=== PATIENT | female | born 1955 | race Caucasian/White ===

== ENCOUNTER 2017-07-06 20:28 | Emergency (ER) | payer OTHER ==
[~2017-07-06] VITALS: Ht 170.2 cm; Wt 81.0 kg
[~2017-07-06 20:28] MED LIST: HYDR-3498 PO; IBUP800T25; PRED20TA PO
[2017-07-06 20:31] VITALS: Ht 170.2 cm; Wt 81.0 kg
[2017-07-06] MEDS ORDERED: KETOROLAC 30 MG INJ IM STA (22:47)
--- NOTE | 2017-07-06 23:25 | RADRPT ---
PROCEDURE: XR Knee. CLINICAL INDICATION: 61 years of age, female. Right knee pain. TECHNIQUE: Three views of the right knee. COMPARISON: None available. FINDINGS: Negative for evidence of acute fracture. Normal alignment. There is advanced tricompartment osteoarthritis with joint space narrowing and osteophytes in all co mpartments greatest in the lateral and patellofemoral compartments. Negative for evidence of a joint effusion. Negative for significant soft tissue swelling. IMPRESSION: Advanced tricompartment osteoarthritis. Negative for evidence of acute fracture. RPTAT: HCTS Physician Elise Date Time Electronically viewed and signed by Physician Elise on 07/06/2017 23:25 CS/
--- NOTE | 2017-07-07 00:46 | RADRPT ---
PROCEDURE: US right lower extremity venous Doppler CLINICAL INDICATION: Right leg swelling TECHNIQUE: Multiple sonographic images of the right lower extremity deep venous system was obtaine d utilizing grayscale, color-flow, compressive sonography and Doppler imaging with augmentation. COMPARISON: No pertinent prior examinations were submitted for comparison. FINDINGS: There is normal compressibility and flow within the right common femoral, superficial femoral, popli teal, and peroneal veins. IMPRESSION: No sonographic evidence for deep venous thrombosis. RPTAT: HIKT .Dhaval Baker MD, MD Date Time Electronically viewed and signed by .Dhaval Baker MD, MD on 07/07/2017 00:46 .T/
[2017-07-07] MEDS ORDERED: IBUP-1542 PO (00:57)
--- NOTE | 2017-07-07 02:46 | ERD ---
ER Documentation Chief Complaint Date/Time DATE: 07/07/17 TIME: 02:43 Chief Complaint right knee pain x 1 week, denies injury HPI This patient is a 61-year-old female presenting to the emergency department with complaints of right knee pain as well as right lower extremity swelling for the past 2 weeks. She had no injury. She describes the symptoms as throbbing, 8 out of 10, and intermittent. She denies recent travel, being on blood thinners, or past history of blood clots. ROS All systems reviewed and are negative except as per history of present illness. Medications Home Meds Active Scripts Ibuprofen* (Motrin*) 600 Mg Tab, 600 MG PO Q6, #30 TAB Prov:YURY QUINTANILLA PA-C 07/07/17 Prednisone* (Prednisone*) 20 Mg Tab, 40 MG PO DAILY for 3 Days, TAB Prov:JOSE RUBIO MD 03/30/16 Hydrocodone Bit-Acetaminophen* ([place]*) 5-325 Mg Tab, 1 TAB PO Q6 Y for PAIN, # 10 TAB Prov:JOSE RUBIO MD 03/30/16 Ibuprofen* (Motrin*) 800 Mg Tab, 800 MG .ROUTE Q6, #30 TAB Prov:ANDIE GIBSON PA-C 06/19/15 Hydrocodone Bit-Acetaminophen* ([place]*) 5-325 Mg Tab, 1 TAB PO Q6 Y for PAIN, # 10 TAB Prov:ANDIE GIBSON PA-C 06/19/15 Allergies Allergies: Coded Allergies: No Known Allergy (Unverified , 03/30/16) PMhx/Soc History of Surgery: Yes (total hysterectomy 1999) Anesthesia Reaction: No Hx Neurological Disorder: No Hx Respiratory Disorders: No Hx Cardiac Disorders: Yes (HTN) Hx Psychiatric Problems: No Hx Miscellaneous Medical Probl: Yes (uterus ca, sx) Hx Alcohol Use: No Hx Substance Use: No Hx Tobacco Use: No Smoking Status: Never smoker Physical Exam Vitals Vital Signs Date Time Temp Pulse Resp B/P Pulse Ox O2 Delivery O2 Flow Rate FiO2 07/06/17 20:31 98.1 70 20 164/77 98 Physical Exam Const: Nontoxic, well-appearing female in no acute distress. Head: Atraumatic Eyes: Normal Conjunctiva ENT: Normal External Ears, Nose and Mouth. Neck: Full range of motion..~ No meningismus. Resp: Clear to auscultation bilaterally Cardio: Regular rate and rhythm, no murmurs Abd: Soft, non tender, non distended. Normal bowel sounds Skin: No petechiae or rashes Back: No midline or flank tenderness Ext: There is subjective tenderness over the medial, lateral, and anterior portion of the right knee. There is no obvious joint effusion. There is no warmth or erythema noted about the right knee. There are varicosities noted superior to the right knee. The patient has limited range of motion of the right knee secondary to pain. The left lower extremity is normal on exam. Neur: Awake and alert Psych: Normal Mood and Affect Results 24 hrs Current Medications Medications (Trade) Dose Ordered Sig/Yvonne Route PRN Reason Start Time Stop Time Status Last Admin Dose Admin Ketorolac Tromethamine (Toradol) 30 mg ONCE STAT IM 07/06/17 22:47 07/06/17 22:48 DC 07/06/17 23:33 Procedures/MDM 61-year-old female presents to the emergency department with complaints of right knee pain as well as right lower extremity swelling. Venous Doppler was negative for DVT and interpreted by the radiologist. X-ray of the right knee showed arthritis, but no acute fracture. The patient was given IM Toradol n the department and she was feeling improved on reevaluation. Patient is stable for outpatient management with a prescription for ibuprofen. She is to have close follow-up with her primary care physician. She is to return immediately for any new or worsening symptoms. PROCEDURE: US right lower extremity venous Doppler CLINICAL INDICATION: Right leg swelling TECHNIQUE: Multiple sonographic images of the right lower extremity deep venous system was obtained utilizing grayscale, color-flow, compressive sonography and Doppler imaging with augmentation. COMPARISON: No pertinent prior examinations were submitted for comparison. FINDINGS: There is normal compressibility and flow within the right common femoral, superficial femoral, popliteal, and peroneal veins. IMPRESSION: No sonographic evidence for deep venous thrombosis. RPTAT: HIKT .Dhaval Baker MD, MD Date Time Electronically viewed and signed by .Dhaval Baker MD, MD on 07/07/2017 00:46 .T/ CC: YURY QUINTANILLA PA-C PROCEDURE: XR Knee. CLINICAL INDICATION: 61 years of age, female. Right knee pain. TECHNIQUE: Three views of the right knee. COMPARISON: None available. FINDINGS: Negative for evidence of acute fracture. Normal alignment. There is advanced tricompartment osteoarthritis with joint space narrowing and osteophytes in all compartments greatest in the lateral and patellofemoral compartments. Negative for evidence of a joint effusion. Negative for significant soft tissue swelling. IMPRESSION: Advanced tricompartment osteoarthritis. Negative for evidence of acute fracture. RPTAT: HCTS Physician Elise Date Time Electronically viewed and signed by Physician Elise on 07/06/2017 23: 25 Departure Diagnosis: Primary Impression: Knee pain, right Condition: Fair Patient Instructions: Knee Pain, Uncertain Cause Additional Instructions: Follow up with your PCP within the next 1-3 days for a repeat evaluation. If you require a referral to a specialist, your Primary Care Provider may be able to provide this for you. In most patient cases, a referral is not required. If you have further questions regarding this matter, please ask your Primary Care Provider. Return the the emergency department immediately if symptoms worsen or change. If you have any questions regarding medications, ask your pharmacist or us before you leave. If any adverse reactions, occur while taking your medications, discontinue the treatment and return to the emergency department immediately. If any new or worsening symptoms, uncontrolled fevers, or other unexplained symptoms occur, return to the emergency department immediately. Take your medications as directed, and complete the entire course of treatment. YURY QUINTANILLA PA-C Jul 07, 2017 02:44
== END 2017-07-07 01:16 | disposition home or self-care (01) ==
LOC: FTE 20:28
DX: M25.561 Pain in right knee (principal); I10 Essential (primary) hypertension; Z85.42 Personal history of malignant neoplasm of other parts of uterus
CPT/HCPCS: 73562; 93971; 96372; J1885; Z7502

== ENCOUNTER 2018-01-02 18:18 | Emergency (ER) | END 2018-01-03 00:52 | disposition home or self-care (01) ==

== ENCOUNTER 2018-05-22 14:29 | Emergency (ER) | END 2018-05-22 16:43 | disposition home or self-care (01) ==